=== PATIENT | female | born 1995 | race Caucasian/White ===

== ENCOUNTER 2025-01-06 20:29 | Emergency (ER) | payer OTHER ==
[~2025-01-06] VITALS: Ht 167.6 cm; Wt 92.1 kg
[2025-01-06 20:51] LABS: BLOOD/HGB, URINE NEGATIVE (Negative); KETONE, URINE NEGATIVE (Negative); LEUK ESTERASE, URINE NEGATIVE (negative); NITRITE, URINE NEGATIVE (negative)
[2025-01-06 21:08] LABS: BASOPHILS 0.9 % (0.1-1.2); EOSINOPHILS 0.4 % (0.7-5.8); LYMPHOCYTES 45.3 % (19.3-51.7); MCH 30.8 PG (25.6-32.2); MCHC 34.0 g/dL (32.2-35.5); MCV 90.5 fL (79.4-94.8); MONOCYTES 10.8 % (4.7-12.5); NEUTROPHILS 42.5 % (34.0-71.1); RBC 4.22 M/uL (3.93-5.22)
[2025-01-06 21:28] LABS: ALT (SGPT) 23.0 U/L (14-59); AST (SGOT) 16.0 U/L (15-37); GLOMERULAR FILTRATION RATE,EST 115.0 mL/min (>60); PROTEIN, TOTAL 7.1 g/dL (6.4-8.2); UREA NITROGEN 9.0 mg/dL (7-18)
[2025-01-06] MEDS ORDERED: KETOROLAC TROMETHAMINE 30 MG/ML VIAL IV ONE (21:30)
[2025-01-06] MEDS ORDERED: CYCLOBENZAPRINE HCL 10 MG TAB PO ONE (21:30)
[2025-01-06] MEDS ORDERED: CYCLOBENZAPRINE10 MG PO (22:33)
[2025-01-06] MEDS ORDERED: CYCLOBENZAPRINE HCL 10 MG HOME.PACK PO ONE (22:45)
[2025-01-06] MEDS ORDERED: methylPREDNISolone 4 MG HOME.PACK PO ONE (22:45)
[2025-01-06 23:09] VITALS: BP 116/57
== END 2025-01-06 23:11 | disposition home or self-care (01) ==
LOC: ED 20:29
PROVIDERS: Family Medicine
DX: S39.012A Strain of muscle, fascia and tendon of lower back, initial encounter (principal); X58.XXXA Exposure to other specified factors, initial encounter; Z88.0 Allergy status to penicillin; Z88.1 Allergy status to other antibiotic agents
CPT/HCPCS: 36415; 72100; 80053; 81003; 84703; 85025; 96374; 99283-25; J1885